=== PATIENT | male | born 1965 | race Caucasian/White ===

== ENCOUNTER 2023-12-08 18:30 | Emergency (ER) | payer SELFPAY ==
[2023-12-08 18:33] VITALS: BP 152/74
[2023-12-08] MEDS: PERCOCET 5/325 1 TABLET PO (21:11)
[2023-12-08 21:15] VITALS: BMI 40.1
--- NOTE | 2023-12-08 23:45 | ED.MUSCINJ ---
HPI-Injury
General
Chief Complaint: Fall
Source: patient
Exam Limitations: none
Time Seen by Provider: 12/08/23 20:58
Nursing documentation reviewed up to this point in time: agreed with
Travel History
Have you had any contact with someone who has COVID-19?: No
Do you have any symptoms of coronavirus? Fever > 100 degrees, chills, cough, shortness of breath, sore throat, loss of taste or smell, muscle aches, or headache?: No
History of Present Illness-Injury
Is this injury a work related problem?: No
Is pt an associate of [facility]?: No
Initial Injury comments:
Patient states he lost footing on stairs and fell down 5 stairs. Landed on left shoulder. Complains of pain to left shoulder, left elbow. Has large abrasion to left elbow. Injury occurred just [employer]
Past History
Past History
ED Past Medical History: None
ED Past Surgical History: None
Review of Systems
Review of Systems
Allergies reviewed?: Yes
All Other Systems: ROS reviewed and negative except as documented in HPI and ROS
Constitutional: Reports no symptoms
EENT: Reports no symptoms
Respiratory: Reports no symptoms
Cardiac: Reports no symptoms
ABD/GI: Reports no symptoms
: Reports no symptoms
Musculoskeletal: Reports joint pain (Pain to left shoulder and left elbow)
Skin: Reports other (abrasion to left elbow)
Neurological: Reports no symptoms
Psychiatric: Reports no symptoms
Musculoskeletal Injury Exam
Musculoskeletal Injury Exam
Left Shoulder:
Pain with Movement?: Moderate
Tender to palpation?: Moderate
Soft tissue swelling?: None
External deformity and angulation?: None
Joint effusion?: None
Contusion?: Moderate
Hematoma-local bleeding into tissue?: None
Strain- Sprain- Tear (Connective tissue injury)?: Moderate
Crepitus with movement?: No
Joint instability?: No
Malalignment/deformity?: No
Range of motion: Limited
Distal skin color and temperature: normal-warm & good color
Capillary Refill: normal
Normal distal neurovascular exam?: Yes
Peripheral Pulses: radial (left): 3+
Left Elbow:
Pain with Movement?: Moderate
Tender to palpation?: Moderate
Soft tissue swelling?: None
External deformity and angulation?: None
Joint effusion?: None
Contusion?: Moderate
Hematoma-local bleeding into tissue?: None
Strain- Sprain- Tear (Connective tissue injury)?: None
Crepitus with movement?: No
Joint instability?: No
Malalignment/deformity?: No
Range of motion: Limited
Distal skin color and temperature: normal-warm & good color
Capillary Refill: normal
Normal distal neurovascular exam?: Yes
Skin Exam
Abrasion
Left Elbow:
Description of abrasion: superfical/dirty
Phy Exam
General Physical Exam
General Presentation: well appearing and mild distress
General age: appears stated age
General Skin: warm and dry
General Habitus: normal
General Mental: alert
Musculoskeletal Exam
Musculoskeletal Exam: neuro vasc intact
Skin Exam
Skin Exam: normal color, warm/dry and no rash
Psychiatric Exam
Psychiatric Exam: normal mood/affect
Injury Course
Orders/Labs/Results
Orders:
Orders
12/08/23 18:35
CR Shoulder, Trauma - Left Urgent
Reason For Exam: pain
Ribs, Left 3 View W/PA Chest CR [CR Ribs-left 3 Vw W/pa Chest] Urgent
Comment:
Reason For Exam: pain
12/08/23 21:06
Lidocaine/Epinephrine/Tetracai [Let Topical Anesthetic Gel] 3 ml .ROUTE .STK-MED ONE
12/08/23 21:08
Oxycodone/Acetaminophen [Percocet 5/325] 1 tablet .ROUTE .STK-MED ONE
12/08/23 21:10
Elbow, Left [CR Elbow - Left Min 3 Views ] Urgent
Comment:
Reason For Exam: trauma
12/08/23 21:11
Oxycodone/Acetaminophen [Percocet 5/325] 1 tablet PO NOW STA
12/08/23 21:41
Shoulder Immobilizer Left- Tx ONCE
*Radiology
Radiology exam reviewed: radiology read reviewed
*Pulse Oximetry
Patient hypoxic: no
*Critical Care Note
Total Time (30-74mins, 75-104mins- exclusive of procedures): Not Applicable
ED Attending Note
-
Portions of this chart may have been created with voice recognition software.� Occasional wrong word or��sound alike� substitutions may have occurred due to the inherent limitations of voice recognition software.
Discharge Plan
Departure
Patient Disposition: Home (Routine Discharge)
Date of Disposition: 12/08/23
Time of Disposition: 21:42
Patient with high blood pressure during this ER visit?: No
Condition: Good
Covid-19: Not Applicable
Discharge Problem:
Fracture of proximal end of humerus
Instructions: Wound Care (DC), Skin Abrasions (DC), Using Cold for Pain, Upper Arm Fracture ED
Prescriptions:
New
oxycodone-acetaminophen [Percocet] 5-325 mg tablet
1 tab PO Q4H PRN (Reason: Pain) Qty: 15 0RF
Referrals:
Soha Hwang DO [Family Provider] -
Trey Kumari MD [Active] - Call in 1-3 days for appt
Activity Restrictions/Additional Instructions:
Follow up with your workman's comp orthopedic provider. Call for an appointment in the AM
Interventions
Interventions:
*Risk Screen - Suicide Last Done: 12/08/23 18:33
*General Assessment Last Done: 12/08/23 18:33
*Neglect/Abuse Screening Last Done: 12/08/23 18:33
*ED COVID-19 Vaccine History Last Done: 12/08/23 18:33
*Nursing Disposition Last Done: 12/08/23 21:56
ED-Musculoskeletal Assessment Last Done: 12/08/23 21:00
ED- Neurological Assessment Last Done: 12/08/23 21:00
Discharge Date and Time
Discharge Date/Time: 12/08/23 22:20
Print Language: NICARAGUAN
== END 2023-12-08 22:20 | disposition home or self-care (01) ==
LOC: EMR 18:30
PROVIDERS: EMERGENCY PHYSICIAN Emergency Medicine; FAMILY PHYSICIAN Family Medicine
DX: S50.312A Abrasion of left elbow, initial encounter (principal); W10.9XXA Fall (on) (from) unspecified stairs and steps, initial encounter
CPT/HCPCS: 99283; 71101; 73030; 73080